=== PATIENT | female | born 1950 | race Caucasian/White ===

== ENCOUNTER 2019-01-24 13:35 | Emergency (ER) | payer OTHER, SELFPAY ==
[2019-01-24 13:35] VITALS: BMI 20.8
[2019-01-24 13:44] VITALS: RESP 18
[2019-01-24] MEDS ORDERED: Sodium Chloride 0.9% 1,000 ML IV ONE (14:38)
[2019-01-24 14:58] LABS: BASO % 0.5 % (0.0-2.0); EOS # 0.3 K/uL (0.0-0.7); EOS % 3.7 % (0.0-4.0); HEMOGLOBIN 12.1 g/dL (11.0-16.0); LYMPH # 2.1 K/uL (1.0-4.3); LYMPH % 26.4 % (20.0-40.0); MEAN CELL VOLUME 86.4 fL (81.0-99.0); MEAN CORPUSCULAR HEMOGLOBIN 29.4 pg (27.0-31.0); MEAN CORPUSCULAR HGB CONC 34.1 g/dL (33.0-37.0); MEAN PLATELET VOLUME 7.4 fL (7.2-11.7); MONO # 0.7 K/uL (0.0-0.8); MONO % 8.7 % (0.0-10.0); NEUT # 4.9 K/uL (1.8-7.0); NEUT % 60.7 % (50.0-75.0); RBC 4.1 Mil/uL (3.80-5.20); RED CELL DISTRIBUTION WIDTH 13.5 % (11.5-14.5); WHITE BLOOD COUNT 8.1 K/uL (4.8-10.8)
--- NOTE | 2019-01-24 15:17 | C.PDOC ---
History Of Present Illness Patient is a 68 year old female, with PMHx of left kidney removal, who presents to the ED with daughter at bedside c/o intermittent lower abdominal pain for the past year that began in her country [place], but just told her daughter about the pain today. Daughter states that since the patient has been in the [place] she has had a decreased appetite. 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 She denies any fever, chills, vomiting, back pain, CP, diarrhea, SOB, or urinary symptoms. Time Seen by Provider: 01/24/19 14:01 Chief Complaint (Nursing): Abdominal Pain History Per: Patient History/Exam Limitations: no limitations Onset/Duration Of Symptoms: Days (one years), Intermittent Episodes Current Symptoms Are (Timing): Still Present Quality Of Discomfort: "Pain" Associated Symptoms: denies: Fever, Chills, Vomiting, Diarrhea, Back Pain, Chest Pain, Constipation, Urinary Symptoms Recent travel outside of the [place]: No Additional History Per: Patient Past Medical History Reviewed: Historical Data, Nursing Documentation, Vital Signs Vital Signs: Last Vital Signs Temp 98.8 F 01/24/19 13:42 Pulse 76 01/24/19 13:42 Resp 18 01/24/19 13:42 BP 112/63 01/24/19 13:42 Pulse Ox 95 01/24/19 13:42 Primary Care Provider: FAMILY PROVIDER,NO - Medical History PMH: Asthma Denies: Chronic Kidney Disease Surgical History: No Surg Hx Family History: States: Unknown Family Hx - Social History Hx Tobacco Use: No Hx Alcohol Use: No Hx Substance Use: No - Immunization History Hx Tetanus Toxoid Vaccination: No Hx Influenza Vaccination: No Hx Pneumococcal Vaccination: No Review Of Systems Constitutional: Negative for: Fever, Chills Cardiovascular: Negative for: Chest Pain Respiratory: Negative for: Shortness of Breath Gastrointestinal: Positive for: Abdominal Pain (lower abdomen). Negative for: Vomiting Genitourinary: Negative for: Dysuria, Frequency, Hematuria Musculoskeletal: Negative for: Back Pain Physical Exam - Physical Exam Appears: Well, Non-toxic, No Acute Distress Head: Atraumatic, Normacephalic Eye(s): bilateral: PERRL, EOMI Oral Mucosa: Moist Neck: Normal ROM, Supple Chest: Symmetrical, No Deformity Cardiovascular: Rhythm Regular, No Murmur Respiratory: Normal Breath Sounds, No Rales, No Rhonchi, No Wheezing Gastrointestinal/Abdominal: Tenderness (lower abdomen ), No Distention, No Guarding, No Rebound Extremity: Bilateral: Atraumatic, Normal Color And Temperature Neurological/Psych: Oriented x3, Normal Motor, Normal Sensation ED Course And Treatment - Laboratory Results Result Diagrams: 01/24/19 14:51 01/24/19 14:51 O2 Sat by Pulse Oximetry: 95 (on RA) Pulse Ox Interpretation: Normal - CT Scan/US CT Head Other Rad Studies (CT/US): Read By Radiologist, Radiology Report Reviewed CT/US Interpretation: IMPRESSION: Status post left nephrectomy. 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 Nonspecific 6 mm low-density lesion lateral segment left hepatic lobe. No other significant abnormality. Medical Decision Making Medical Decision Making: Plan: CAT A&P Urine Culture Labs UA IV Fluids Patient was given antibiotics for a UTI. Disposition Counseled Patient/Family Regarding: Studies Performed, Diagnosis, Need For Followup - Disposition Referrals: [facility] [Outside] [facility] [Outside] Disposition: HOME/ ROUTINE Disposition Time: 17:13 Condition: STABLE Prescriptions: Cephalexin [Keflex] 250 mg PO QID #20 capsule Instructions: Urinary Tract Infection, Adult (DC), Acute Abdomen (Belly Pain), Adult (DC) Forms: Gen Discharge Inst Lao, [facility] (Lao) Print Language: SWEDISH - POA Present On Arrival: None - Clinical Impression Clinical Impression: Abdominal pain, UTI (urinary tract infection), Elevated lipase - Scribe Statement The provider has reviewed the documentation as recorded by the Susanna Lemus All medical record entries made by the Kwasiibjennifer were at my direction and personally dictated by me. I have reviewed the chart and agree that the record accurately reflects my personal performance of the history, physical exam, [facility] decision making, and the department course for this patient. I have also personally directed, reviewed, and agree with the discharge instructions and disposition.
[2019-01-24 15:29] LABS: ALB/GLOB RATIO 1.4 (1.0-2.1); ALBUMIN 4.2 g/dL (3.5-5.0); ALT/SGPT 22 U/L (9-52); AST/SGOT 38 U/L (14-36); BLOOD UREA NITROGEN 14 mg/dL (7-17); CALCIUM 8.8 mg/dl (8.6-10.4); GFR NON-AFRICAN AMERICAN > 60; LIPASE 344 U/L (23-300)
[2019-01-24] MEDS ORDERED: Iodixanol 320 MG/ML 100 ML BOTTLE IV ONE (15:49)
[2019-01-24 15:58] LABS: SQUAMOUS EPITHIAL 1 /hpf (0-5); URINE BACTERIA MANY (<OCC); URINE BILIRUBIN NEGATIVE (NEGATIVE); URINE BLOOD 2+ (NEGATIVE); URINE CLARITY Hazy (Clear); URINE COLOR Yellow (YELLOW); URINE GLUCOSE (UA) NORMAL (Normal); URINE LEUKOCYTE ESTERASE 1+ Leu/uL (Negative); URINE PROTEIN NEGATIVE (NEGATIVE); URINE UROBILINOGEN NORMAL mg/dL (0.2-1.0)
--- NOTE | 2019-01-24 16:35 | CT ---
Date of service: 01/24/2019 PROCEDURE: CT Abdomen and Pelvis with contrast HISTORY: abd pain COMPARISON: Not available TECHNIQUE: Contrast dose: 100 mL Visipaque 320 Radiation dose: Total exam DLP = 271.54 mGy-cm. This CT exam was performed using one or more of the following dose reduction techniques: Automated exposure control, adjustment of the mA and/or kV according to patient size, and/or use of iterative reconstruction technique. FINDINGS: LOWER THORAX: Unremarkable. LIVER: Normal size, contour and attenuation. There is a 6 mm nonspecific rounded low-attenuation mass in the lateral segment of the left hepatic lobe. No other hepatic mass is identified. There is no biliary ductal dilatation. GALLBLADDER AND BILE DUCTS: Unremarkable. PANCREAS: Unremarkable. No gross lesion or ductal dilatation. SPLEEN: Unremarkable. ADRENALS: Normal right adrenal gland. Left adrenal not visualized, status post left nephrectomy. KIDNEYS AND URETERS: Unremarkable right kidney. No mass, calculus or hydronephrosis. Status post left nephrectomy. VASCULATURE: Unremarkable. No aortic aneurysm. There is atherosclerotic calcification of the abdominal aorta BOWEL: Unremarkable. No obstruction. No gross mural thickening. APPENDIX: Proximal right appendix is unremarkable. More distal appendix is not visualized on this examination. No evidence of acute appendicitis. PERITONEUM: Unremarkable. No free fluid. No free air. LYMPH NODES: Unremarkable. No enlarged lymph nodes. BLADDER: Poorly distended. Grossly unremarkable. REPRODUCTIVE: Status post hysterectomy BONES: No acute fracture. OTHER FINDINGS: None. IMPRESSION: Status post left nephrectomy. 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 Nonspecific 6 mm low-density lesion lateral segment left hepatic lobe. No other significant abnormality.
[2019-01-24 16:37] VITALS: BP 119/67; PULSE 66; TEMP 98
[2019-01-24 16:40] VITALS: O2SAT 95
== END 2019-01-24 18:00 | disposition home or self-care (01) ==
LOC: C.ER 13:35
DX: N39.0 Urinary tract infection, site not specified (principal); R74.8 Abnormal levels of other serum enzymes; R10.9 Unspecified abdominal pain; Z90.5 Acquired absence of kidney
CPT/HCPCS: 74177; 80053; 81001; 83690; 85025; 87086; 87181; 96365; 99285; J0696; J7030; Q9967